=== PATIENT | male | born 1940 | race Caucasian/White ===

== ENCOUNTER → 2016-09-05 | Outpatient (CLI) | payer MEDICARE, OTHER | LOC: US 12:27 | DX: I73.9 Peripheral vascular disease, unspecified (principal); I70.202 Unspecified atherosclerosis of native arteries of extremities, left leg | CPT/HCPCS: 93925 ==

== ENCOUNTER → 2020-05-30 | Outpatient (CLI) | payer MEDICARE, OTHER ==
[~2020-05-30] MED LIST: AMARYL2 MG PO; ASPIR 8181 MG PO; AUGMENTIN 875-1 EACH PO; BUMEX 1MG TABLET1 MG PO; CLARITIN10 MG PO; COZAAR25 MG PO; ECOTRIN81 MG PO; ELIQUIS2.5 MG PO; ELIQUIS5 MG PO; FLECAINIDE ACE100 MG PO; FLOMAX 0.4 MG0.4 MG PO; GLUCOPHAGE500 MG PO; IPRAT-ALBUT 0.5-3 ML INH; JANUVIA100 MG PO; K-DUR TAB 20 M20 MEQ PO; LIPITOR80 MG PO; LOPRESSOR 25 MG25 MG PO; LOPRESSOR50 MG PO; NEURONTIN800 MG PO; PLAVIX 75 MG TA75 MG PO; PLETAL 100 MG100 MG PO; PROTONIX40 MG PO; SEROQUEL25 MG PO; SYMBICORT 160-1 INHA INH; TAMBOCOR 100 M100 MG PO; VENTOLIN HFA 66.7 GM INH; VIT E PO; VITAMIN B-12100 MC1 GT; VITAMIN B-121000 MCG PO; VITAMIN C1000 MG PO; VITAMIN D31000 UNIT PO; VITAMIN D325 MCG PO
== END ==
LOC: EXRD 13:23
DX: R06.02 Shortness of breath (principal); J98.4 Other disorders of lung
CPT/HCPCS: 71046

== ENCOUNTER → 2020-07-10 | Outpatient (CLI) | payer MEDICARE, OTHER | LOC: HEART 5 07:49 | DX: R07.9 Chest pain, unspecified (principal); I50.1 Left ventricular failure, unspecified | CPT/HCPCS: 78452; A9502; J2785 ==

== ENCOUNTER 2021-05-22 17:25 | Emergency (ER) | payer MEDICARE, OTHER ==
[2021-05-22 18:19] LABS: HEMOGLOBIN 13.5 gm/dl (14.0-17.5); RED BLOOD COUNT 4.01 M/UL (4.20-5.50)
[2021-05-22 18:55] LABS: BUN/CREATININE RATIO 26 (0-10)
[2021-05-22] MEDS ORDERED: DEXAMETHASONE6 MG PO (22:25)
== END 2021-05-22 22:35 | disposition home or self-care (01) ==
LOC: ER1 17:25
PROVIDERS: Physician Assistant Medical
DX: U07.1 COVID-19 (principal); I11.0 Hypertensive heart disease with heart failure; I50.9 Heart failure, unspecified; E11.9 Type 2 diabetes mellitus without complications; Z95.5 Presence of coronary angioplasty implant and graft
CPT/HCPCS: 71045; 80053; 82550; 82553; 83605; 83690; 83874; 83880; 84484; 85025; 85610; 87040; 93005; 94664; 96374; 99285; J1100; U0002

== ENCOUNTER → 2021-12-17 | Outpatient (CLI) | payer MEDICARE, OTHER ==
[~2021-12-17] MED LIST changes: +DEXAMETHASONE6 MG PO
== END ==
LOC: EXRD 14:46
DX: J20.9 Acute bronchitis, unspecified (principal)
CPT/HCPCS: 71046

== ENCOUNTER 2022-01-07 10:29 | Inpatient (IN) | payer MEDICARE, OTHER ==
[~2022-01-07] VITALS: Ht 188 cm; Wt 71.7 kg
[~2022-01-07 10:29] MED LIST changes: +ASPIRIN EC81 MG PO; +BRILINTA90 MG PO; +FLOMAX0.4 MG PO; +ISOSORBIDE MONO30 MG PO; +LASIX20 MG PO; +LOPRESSOR 50 MG50 MG PO; +NEURONTIN300 MG PO; +ZYRTEC10 MG PO
[2022-01-07 11:19] LABS: HEMOGLOBIN 12.5 gm/dl (14.0-17.5); RED BLOOD COUNT 3.93 M/UL (4.20-5.50); WHITE BLOOD COUNT 10.1 K/UL (4.5-11.0)
[2022-01-07 12:31] LABS: BUN/CREATININE RATIO 18 (0-10)
[2022-01-07] MEDS ORDERED: VITAMIN D350 MC3 PO (18:54)
[2022-01-07] MEDS ORDERED: VITAMIN E450 MG PO (18:55)
[2022-01-07] MEDS ORDERED: VITAMIN B-121000 MC3 PO (18:56)
[2022-01-08 03:21] LABS: HEMOGLOBIN 12.2 gm/dl (14.0-17.5); RED BLOOD COUNT 3.95 M/UL (4.20-5.50); WHITE BLOOD COUNT 9.4 K/UL (4.5-11.0)
[2022-01-08 03:55] LABS: BUN/CREATININE RATIO 23 (0-10)
--- NOTE | 2022-01-08 09:56 | NUR ---
dr. hairston spoken to patient and was informed that patient fracture a non surgical and will be non weight bearing for approx 2 months.
[2022-01-09 07:37] LABS: WHITE BLOOD COUNT 9.9 K/UL (4.5-11.0)
[2022-01-09 08:02] LABS: RED BLOOD COUNT 3.52 M/UL (4.20-5.50)
[2022-01-09 08:24] LABS: BUN/CREATININE RATIO 25 (0-10)
--- NOTE | 2022-01-09 08:49 | NUR ---
patient coughing out with no sputum stated i can feel it draining on my neck but none coming out. wheezing and sob. requested RT to give patient breathing treatment. patient pulse ox 88% on 024L via nasal cannula and cont to complaints of sob. notifed dr. melgar patient condition and received order.
--- NOTE | 2022-01-09 08:56 | NUR ---
patient breathing with no difficulty at this time, high flow oxgen in placed saturating 93%
[2022-01-10 03:01] LABS: HEMOGLOBIN 11.7 gm/dl (14.0-17.5); RED BLOOD COUNT 3.71 M/UL (4.20-5.50); WHITE BLOOD COUNT 12.1 K/UL (4.5-11.0)
[2022-01-10 03:44] LABS: BUN/CREATININE RATIO 23 (0-10)
[2022-01-12 02:49] LABS: HEMOGLOBIN 11.7 gm/dl (14.0-17.5); RED BLOOD COUNT 3.74 M/UL (4.20-5.50)
[2022-01-12 03:02] LABS: WHITE BLOOD COUNT 8.3 K/UL (4.5-11.0)
[2022-01-12 03:16] LABS: BUN/CREATININE RATIO 39 (0-10)
[2022-01-12 22:29] LABS: HEMOGLOBIN 10.2 gm/dl (14.0-17.5)
[2022-01-12 22:38] LABS: RED BLOOD COUNT 3.24 M/UL (4.20-5.50); WHITE BLOOD COUNT 10.4 K/UL (4.5-11.0)
[2022-01-12 23:10] LABS: BUN/CREATININE RATIO 61 (0-10)
[2022-01-14 03:18] LABS: HEMOGLOBIN 11.1 gm/dl (14.0-17.5)
[2022-01-14 03:33] LABS: BUN/CREATININE RATIO 46 (0-10)
[2022-01-14 03:41] LABS: RED BLOOD COUNT 3.57 M/UL (4.20-5.50)
[2022-01-14] MEDS ORDERED: DOXYCYCLINE HY100 M2 PO (12:58)
[2022-01-14] MEDS ORDERED: MEGACE 400400 MG/10 PO (12:58)
[2022-01-14] MEDS ORDERED: PERCOCET 5/325 T1 EA PO (12:58)
[2022-01-14] MEDS ORDERED: DOCUSATE SODIU100 MG PO (12:58)
[2022-01-14] MEDS ORDERED: POLYETHYLENE GL17 GM PO (12:58)
[2022-01-14] MEDS ORDERED: FUROSEMIDE20 MG PO (12:58)
== END 2022-01-14 17:57 | DRG 559 ==
LOC: ER1 10:29 → CDU 16:04 → M/S 18:01
PROVIDERS: Physician Assistant; ADMIT Internal Medicine
PROC: 5A0935A Assistance with Respiratory Ventilation, Less than 24 Consecutive Hours, High Flow/Velocity Cannula (ICD-10-PCS; 2022-01-09)
PROC: B24BZZZ Ultrasonography of Heart with Aorta (ICD-10-PCS; principal; 2022-01-12)
DX: M97.02XA Periprosthetic fracture around internal prosthetic left hip joint, initial encounter (principal); I50.33 Acute on chronic diastolic (congestive) heart failure; J18.9 Pneumonia, unspecified organism; J96.11 Chronic respiratory failure with hypoxia; E44.1 Mild protein-calorie malnutrition; I48.0 Paroxysmal atrial fibrillation; J60 Coalworker's pneumoconiosis; I25.10 Atherosclerotic heart disease of native coronary artery without angina pectoris; J30.9 Allergic rhinitis, unspecified; K21.9 Gastro-esophageal reflux disease without esophagitis; Z96.642 Presence of left artificial hip joint; W01.0XXA Fall on same level from slipping, tripping and stumbling without subsequent striking against object, initial encounter; Z96.611 Presence of right artificial shoulder joint; I27.20 Pulmonary hypertension, unspecified; M54.50 Low back pain, unspecified; G89.29 Other chronic pain; I34.0 Nonrheumatic mitral (valve) insufficiency; J84.10 Pulmonary fibrosis, unspecified; R62.7 Adult failure to thrive; I10 Essential (primary) hypertension; R13.10 Dysphagia, unspecified; M51.36 Other intervertebral disc degeneration, lumbar region; Z79.01 Long term (current) use of anticoagulants; Z90.49 Acquired absence of other specified parts of digestive tract; Y92.009 Unspecified place in unspecified non-institutional (private) residence as the place of occurrence of the external cause; Z95.1 Presence of aortocoronary bypass graft; Z99.81 Dependence on supplemental oxygen; Z98.890 Other specified postprocedural states; Z79.82 Long term (current) use of aspirin; Z79.84 Long term (current) use of oral hypoglycemic drugs; Z79.899 Other long term (current) drug therapy; Z88.8 Allergy status to other drugs, medicaments and biological substances; Z95.5 Presence of coronary angioplasty implant and graft; Z68.20 Body mass index [BMI] 20.0-20.9, adult
CPT/HCPCS: ECHO; 36415; 70450; 71045; 71250; 72131; 73502; 73552; 73700; 80053; 81001; 82533; 82550; 82553; 82803; 82962; 83036; 83735; 83880; 84100; 84439; 84443; 84484; 85025; 92610; 93306; 94640; 94664; 94760; 96374; 96375; 97110; 97110-GP-CQ; 97162; 97166; 97530; 97530-GP-CQ; 99285; J1940; J2185; J2270; J2405; J2920; U0002